=== PATIENT | female | born 1980 | race Caucasian/White ===

== ENCOUNTER 2018-10-13 12:19 | Emergency (ER) | payer MEDICAID ==
[~2018-10-13] VITALS: Ht 167.6 cm; Wt 80.3 kg
[2018-10-13 12:23] VITALS: BP 159/100; Ht 167.6 cm; Wt 80.3 kg
== END 2018-10-13 13:51 | disposition home or self-care (01) ==
LOC: ED 12:19
DX: S29.012A Strain of muscle and tendon of back wall of thorax, initial encounter (principal); R06.00 Dyspnea, unspecified; R68.83 Chills (without fever); Z98.890 Other specified postprocedural states; X58.XXXA Exposure to other specified factors, initial encounter; Y93.89 Activity, other specified; Y99.8 Other external cause status; Y92.89 Other specified places as the place of occurrence of the external cause

== ENCOUNTER 2018-10-19 11:06 | Emergency (ER) | payer MEDICAID ==
[~2018-10-19] VITALS: Ht 167.6 cm; Wt 79.8 kg
[2018-10-19 11:09] VITALS: Ht 167.6 cm; Wt 79.8 kg
[2018-10-19 12:44] VITALS: BP 119/86
== END 2018-10-19 13:05 | disposition home or self-care (01) ==
LOC: ED 11:06
DX: J40 Bronchitis, not specified as acute or chronic (principal); Z98.890 Other specified postprocedural states
CPT/HCPCS: J7620; Q0092